=== PATIENT | female | born 2000 | race African-American/Black ===

== ENCOUNTER 2025-06-27 17:51 | Emergency (ER) | payer OTHER, MEDICAID ==
[~2025-06-27] VITALS: Ht 170.2 cm; Wt 65.0 kg
[2025-06-27 17:55] VITALS: O2SAT 100
[2025-06-27] MEDS: HYDROCODONE/ACETAMINOPHEN 5/325MG TABLET PO ONE (19:52)
[2025-06-27] MEDS: ONDANSETRON HCL 4MG/2ML INJ IM ONE (19:52)
[2025-06-27] MEDS ORDERED: CYCL5TAB3 MT (19:57)
[2025-06-27] MEDS ORDERED: NAPR-681 MT (19:57)
[2025-06-27 20:15] VITALS: BP 132/81; PULSE 86; RESP 14; TEMP 36.4; O2SAT 100
[2025-06-27 20:21] LABS: BASOPHILS % 0.3 % (0.0-2.0); EOSINOPHILS % 0.1 % (0.0-5.0); HEMATOCRIT. 39.2 % (36.0-48.0); HEMOGLOBIN. 12.9 g/dL (12.0-16.0); LYMPHOCYTES % 15.2 % (20.0-50.0); MEAN PLATELET VOLUME 8.8 fl (7.4-10.4); MONOCYTES % 4.1 % (2.0-8.0); NEUTROPHILS % 80.3 % (40.0-76.0); PLATELET 272 x1000/uL (130-400); RED BLOOD CELL COUNT 4.37 mill/uL (4.2-5.4); RED CELL DISTRIBUTION WIDTH 13.8 % (11.6-14.6)
[2025-06-27 20:25] LABS: HCG SCREEN NEGATIVE
[2025-06-27 21:01] LABS: CREATININE 0.8 mg/dL (0.6-1.0); UREA NITROGEN BLOOD 11 mg/dL (9-23)
== END 2025-06-27 20:29 | disposition home or self-care (01) ==
LOC: ER 17:51
DX: S16.1XXA Strain of muscle, fascia and tendon at neck level, initial encounter (principal); S00.93XA Contusion of unspecified part of head, initial encounter; R07.89 Other chest pain; X58.XXXA Exposure to other specified factors, initial encounter; Y93.89 Activity, other specified; Y92.410 Unspecified street and highway as the place of occurrence of the external cause; Y99.8 Other external cause status
CPT/HCPCS: 80048; 84703; 85025; 36415; 71045; 70450; 72125; 96372; 99285; J2405; Z7610